=== PATIENT | male | born 1965 | race Caucasian/White ===

== ENCOUNTER 2021-07-13 13:35 | Inpatient (IN) | payer BC ==
[~2021-07-13] VITALS: Ht 170.2 cm; Wt 93.0 kg
[2021-07-13 18:00] VITALS: BP 152/97
[2021-07-13] MEDS ORDERED: ACETAMINOPHEN 325 MG TABLET PO PRN ×2 (18:30→18:45)
[2021-07-13] MEDS ORDERED: MELATONIN 5 MG TABLET PO PRN (18:30)
[2021-07-13] MEDS ORDERED: MELATONIN 3 MG TABLET PO PRN (18:45)
[2021-07-13] MEDS ORDERED: CloNIDine HCL 0.1 MG TABLET PO PRN (18:45)
[2021-07-13] MEDS ORDERED: MAGNESIUM HYDROXIDE SUSPENSION 30 ML UDCUP PO PRN (18:45)
[2021-07-13 19:15] VITALS: BP 134/87
[2021-07-13] MEDS: ETHYL ALCOHOL 62% ANTISEPTIC NASAL INHALANT 0.6 ML AMPUL NASAL SCH (20:55)
[2021-07-13] MEDS: METOPROLOL TARTRATE 50 MG TABLET PO SCH (20:55)
[2021-07-13] MEDS: DOCUSATE SODIUM 100 MG CAPSULE PO SCH (20:56)
[2021-07-13] MEDS: SENNA 187 MG TABLET PO SCH (20:56)
[2021-07-13 21:00] VITALS: BP 131/90
[2021-07-14] MEDS ORDERED: PNEUMOCOCCAL VACCINE POLYVALENT 0.5 ML VIAL [PPSV23] IM. ONE (00:15)
[2021-07-14 04:23] VITALS: BP 131/88
[2021-07-14 07:13] LABS: BASOPHILS % (AUTO) 0.4 % (0.0-2.0); EOSINOPHILS % (AUTO) 1.8 % (1.0-6.0); HEMATOCRIT 43.1 % (41-53); HEMOGLOBIN 14.9 g/dL (13.5-17.5); LYMPHOCYTES # (AUTO) 1.8 K/uL (1.0-4.8); LYMPHOCYTES % (AUTO) 20.1 % (22.0-44.0); MEAN CORPUSCULAR HEMOGLOBIN 31.2 pg (26.0-34.0); MEAN CORPUSCULAR HGB CONC 34.5 G/dL (31.0-37.0); MEAN CORPUSCULAR VOLUME 90 fL (80-100); MONOCYTES # (AUTO) 1.1 K/uL (0.1-1.0); MONOCYTES % (AUTO) 12.2 % (2.0-9.0); NEUTROPHILS # (AUTO) 5.9 K/uL (1.8-7.7); NEUTROPHILS % (AUTO) 65.5 % (40.0-70.0); PLATELET COUNT (AUTO) 170 K/uL (150-450); RED BLOOD CELL COUNT(AUTO) 4.77 MIL/uL (4.50-5.90); RED CELL DISTRIBUTION WIDTH 13.5 % (11.5-14.5)
[2021-07-14 07:26] LABS: ALANINE AMINOTRANSFERASE 81 U/L (12-78); ALBUMIN 3.8 g/dL (3.4-5.0); ALKALINE PHOSPHATASE 58 U/L (46-116); ANION GAP 8 mmol/L (8-16); ASPARTATE AMINOTRANSFERASE 26 U/L (15-37); BILIRUBIN,TOTAL 0.5 mg/dL (0.1-1.0); CALCIUM, TOTAL 9.3 mg/dL (8.8-10.5); CARBON DIOXIDE 29 mmol/L (22-29); CHLORIDE 102 mmol/L (98-107); CREATININE 1.06 mg/dL (0.60-1.30); GLOMERULAR FILTR. RATE CALC > 60 mL/min (>60); GLUCOSE,RANDOM 117 mg/dL (70-110); POTASSIUM 3.7 mmol/L (3.5-5.1); SODIUM SERUM 139 mmol/L (136-145); TOTAL PROTEIN, SERUM 7.8 g/dL (6.4-8.2); UREA NITROGEN, BLOOD 34 mg/dL (7-18)
[2021-07-14] MEDS: HYDROCHLOROTHIAZIDE 25 MG TABLET PO SCH (08:10)
[2021-07-14] MEDS: ETHYL ALCOHOL 62% ANTISEPTIC NASAL INHALANT 0.6 ML AMPUL NASAL SCH ×2 (08:10→20:38)
[2021-07-14] MEDS: LISINOPRIL 20 MG TABLET PO SCH (08:10)
[2021-07-14] MEDS: METOPROLOL TARTRATE 50 MG TABLET PO SCH ×2 (08:10→20:37)
[2021-07-14 08:30] VITALS: BP 133/94
[2021-07-14] MEDS: DOCUSATE SODIUM 100 MG CAPSULE PO SCH ×2 (08:38→20:38)
[2021-07-14] MEDS: ENOXAPARIN SODIUM 30 MG/0.3 ML PF SYRINGE SQ SCH ×2 (10:41→20:37)
[2021-07-14 15:10] VITALS: BP 124/85
[2021-07-14] MEDS: SENNA 187 MG TABLET PO SCH (20:38)
[2021-07-14 20:40] VITALS: BP 128/85
[2021-07-15 02:53] VITALS: BP 122/90
[2021-07-15 07:45] VITALS: BP 139/99
[2021-07-15] MEDS: METOPROLOL TARTRATE 50 MG TABLET PO SCH ×2 (08:56→21:26)
[2021-07-15] MEDS: LISINOPRIL 20 MG TABLET PO SCH (08:56)
[2021-07-15] MEDS: ETHYL ALCOHOL 62% ANTISEPTIC NASAL INHALANT 0.6 ML AMPUL NASAL SCH ×2 (08:56→21:26)
[2021-07-15] MEDS: ATORVASTATIN CALCIUM 20 MG TABLET PO SCH (08:56)
[2021-07-15] MEDS: HYDROCHLOROTHIAZIDE 25 MG TABLET PO SCH (08:58)
[2021-07-15] MEDS: DOCUSATE SODIUM 100 MG CAPSULE PO SCH ×2 (08:58→21:26)
[2021-07-15] MEDS: ENOXAPARIN SODIUM 30 MG/0.3 ML PF SYRINGE SQ SCH ×2 (08:59→21:25)
[2021-07-15 18:00] VITALS: BP 142/92
[2021-07-15 21:24] VITALS: BP 135/90
[2021-07-15] MEDS: SENNA 187 MG TABLET PO SCH (21:26)
[2021-07-16 01:45] VITALS: BP 121/85
[2021-07-16] MEDS ORDERED: METO25XL PO (07:36)
[2021-07-16] MEDS ORDERED: LORA10TA7 PO (07:36)
[2021-07-16] MEDS ORDERED: ASPI-1444 PO (07:36)
[2021-07-16 08:30] VITALS: BP 116/86
[2021-07-16] MEDS: ETHYL ALCOHOL 62% ANTISEPTIC NASAL INHALANT 0.6 ML AMPUL NASAL SCH ×2 (09:10→20:32)
[2021-07-16] MEDS: DOCUSATE SODIUM 100 MG CAPSULE PO SCH ×2 (09:11→20:33)
[2021-07-16] MEDS: LISINOPRIL 20 MG TABLET PO SCH (09:11)
[2021-07-16] MEDS: HYDROCHLOROTHIAZIDE 25 MG TABLET PO SCH (09:11)
[2021-07-16] MEDS: METOPROLOL TARTRATE 50 MG TABLET PO SCH ×2 (09:11→20:32)
[2021-07-16] MEDS: ATORVASTATIN CALCIUM 20 MG TABLET PO SCH (09:11)
[2021-07-16] MEDS: ENOXAPARIN SODIUM 30 MG/0.3 ML PF SYRINGE SQ SCH ×2 (09:25→20:32)
[2021-07-16 15:00] VITALS: BP 127/80
[2021-07-16 20:28] VITALS: BP 108/85
[2021-07-16] MEDS: SENNA 187 MG TABLET PO SCH (20:33)
[2021-07-17 01:30] VITALS: BP 133/92
[2021-07-17] MEDS: METOPROLOL TARTRATE 50 MG TABLET PO SCH ×2 (07:35→20:34)
[2021-07-17] MEDS: ATORVASTATIN CALCIUM 20 MG TABLET PO SCH (07:35)
[2021-07-17] MEDS: DOCUSATE SODIUM 100 MG CAPSULE PO SCH ×2 (07:35→20:34)
[2021-07-17] MEDS: HYDROCHLOROTHIAZIDE 25 MG TABLET PO SCH (07:35)
[2021-07-17] MEDS: ETHYL ALCOHOL 62% ANTISEPTIC NASAL INHALANT 0.6 ML AMPUL NASAL SCH ×2 (07:35→20:34)
[2021-07-17] MEDS: LISINOPRIL 20 MG TABLET PO SCH (07:36)
[2021-07-17 08:30] VITALS: BP 127/90
[2021-07-17] MEDS: ENOXAPARIN SODIUM 30 MG/0.3 ML PF SYRINGE SQ SCH ×2 (09:12→20:34)
[2021-07-17 15:40] VITALS: BP 124/77
[2021-07-17 20:32] VITALS: BP 135/73
[2021-07-17] MEDS: SENNA 187 MG TABLET PO SCH (20:37)
[2021-07-18 01:00] VITALS: BP 117/82
[2021-07-18] MEDS: DOCUSATE SODIUM 100 MG CAPSULE PO SCH ×2 (08:00→21:12)
[2021-07-18] MEDS: ATORVASTATIN CALCIUM 20 MG TABLET PO SCH (08:00)
[2021-07-18] MEDS: ETHYL ALCOHOL 62% ANTISEPTIC NASAL INHALANT 0.6 ML AMPUL NASAL SCH ×2 (08:00→21:12)
[2021-07-18] MEDS: METOPROLOL TARTRATE 50 MG TABLET PO SCH ×2 (08:01→21:13)
[2021-07-18] MEDS: LISINOPRIL 20 MG TABLET PO SCH (08:01)
[2021-07-18] MEDS: ENOXAPARIN SODIUM 30 MG/0.3 ML PF SYRINGE SQ SCH ×2 (08:01→21:13)
[2021-07-18] MEDS: HYDROCHLOROTHIAZIDE 25 MG TABLET PO SCH (08:02)
[2021-07-18 08:30] VITALS: BP 134/97
[2021-07-18 15:30] VITALS: BP 127/84
[2021-07-18 21:00] VITALS: BP 131/82
[2021-07-18] MEDS: SENNA 187 MG TABLET PO SCH (21:12)
[2021-07-19 00:45] VITALS: BP 134/85
[2021-07-19] MEDS: DOCUSATE SODIUM 100 MG CAPSULE PO SCH ×2 (08:01→20:55)
[2021-07-19] MEDS: LISINOPRIL 20 MG TABLET PO SCH (08:02)
[2021-07-19] MEDS: METOPROLOL TARTRATE 50 MG TABLET PO SCH ×2 (08:02→20:55)
[2021-07-19] MEDS: ATORVASTATIN CALCIUM 20 MG TABLET PO SCH (08:02)
[2021-07-19] MEDS: HYDROCHLOROTHIAZIDE 25 MG TABLET PO SCH (08:03)
[2021-07-19] MEDS: ENOXAPARIN SODIUM 30 MG/0.3 ML PF SYRINGE SQ SCH ×2 (08:03→20:54)
[2021-07-19] MEDS: ETHYL ALCOHOL 62% ANTISEPTIC NASAL INHALANT 0.6 ML AMPUL NASAL SCH ×2 (08:03→20:54)
[2021-07-19 08:10] VITALS: BP 119/94
[2021-07-19 11:12] LABS: COVID AG,FIA SOURCE NASAL SWAB
[2021-07-19] MEDS: LORATADINE 10 MG TABLET PO SCH (12:30)
[2021-07-19 12:34] VITALS: BP 128/81
[2021-07-19 15:39] VITALS: BP 118/76
[2021-07-19 20:00] VITALS: BP 117/80
[2021-07-19] MEDS: SENNA 187 MG TABLET PO SCH (20:54)
[2021-07-19] MEDS: FLUTICASONE PROPIONATE 50 MCG/SPRAY 16 GM NASAL SPRAY NASAL PRN (21:04)
[2021-07-20] VITALS: BP 118/73
[2021-07-20 08:04] VITALS: BP 126/76
[2021-07-20] MEDS: HYDROCHLOROTHIAZIDE 25 MG TABLET PO SCH (08:09)
[2021-07-20] MEDS: ENOXAPARIN SODIUM 30 MG/0.3 ML PF SYRINGE SQ SCH ×2 (08:09→20:50)
[2021-07-20] MEDS: ETHYL ALCOHOL 62% ANTISEPTIC NASAL INHALANT 0.6 ML AMPUL NASAL SCH ×2 (08:09→20:49)
[2021-07-20] MEDS: LISINOPRIL 20 MG TABLET PO SCH (08:10)
[2021-07-20] MEDS: LORATADINE 10 MG TABLET PO SCH (08:10)
[2021-07-20] MEDS: METOPROLOL TARTRATE 50 MG TABLET PO SCH ×2 (08:10→20:50)
[2021-07-20] MEDS: ATORVASTATIN CALCIUM 20 MG TABLET PO SCH (08:10)
[2021-07-20] MEDS: DOCUSATE SODIUM 100 MG CAPSULE PO SCH ×2 (08:10→20:49)
[2021-07-20 16:02] VITALS: BP 112/72
[2021-07-20 20:30] VITALS: BP 113/70
[2021-07-20] MEDS: FLUTICASONE PROPIONATE 50 MCG/SPRAY 16 GM NASAL SPRAY NASAL PRN (20:50)
[2021-07-20] MEDS: SENNA 187 MG TABLET PO SCH (20:50)
[2021-07-21 05:25] VITALS: BP 120/87
[2021-07-21] MEDS: METOPROLOL TARTRATE 50 MG TABLET PO SCH ×2 (08:28→20:40)
[2021-07-21] MEDS: ENOXAPARIN SODIUM 30 MG/0.3 ML PF SYRINGE SQ SCH ×2 (08:28→20:40)
[2021-07-21] MEDS: HYDROCHLOROTHIAZIDE 25 MG TABLET PO SCH (08:29)
[2021-07-21] MEDS: LORATADINE 10 MG TABLET PO SCH (08:30)
[2021-07-21] MEDS: DOCUSATE SODIUM 100 MG CAPSULE PO SCH ×2 (08:30→20:40)
[2021-07-21] MEDS: ATORVASTATIN CALCIUM 20 MG TABLET PO SCH (08:30)
[2021-07-21] MEDS: LISINOPRIL 20 MG TABLET PO SCH (08:30)
[2021-07-21] MEDS: ETHYL ALCOHOL 62% ANTISEPTIC NASAL INHALANT 0.6 ML AMPUL NASAL SCH ×2 (08:36→20:40)
[2021-07-21 09:12] VITALS: BP 118/89
[2021-07-21 16:02] VITALS: BP 123/73
[2021-07-21] MEDS: SENNA 187 MG TABLET PO SCH (20:40)
[2021-07-21] MEDS: FLUTICASONE PROPIONATE 50 MCG/SPRAY 16 GM NASAL SPRAY NASAL PRN (20:41)
[2021-07-21 23:01] VITALS: BP 117/70
[2021-07-22 02:00] VITALS: BP 124/76
[2021-07-22] MEDS: DOCUSATE SODIUM 100 MG CAPSULE PO SCH ×2 (08:41→20:46)
[2021-07-22] MEDS: LORATADINE 10 MG TABLET PO SCH (08:41)
[2021-07-22] MEDS: METOPROLOL TARTRATE 50 MG TABLET PO SCH ×2 (08:42→20:46)
[2021-07-22] MEDS: ATORVASTATIN CALCIUM 20 MG TABLET PO SCH (08:43)
[2021-07-22] MEDS: ENOXAPARIN SODIUM 30 MG/0.3 ML PF SYRINGE SQ SCH ×2 (08:44→20:46)
[2021-07-22] MEDS: LISINOPRIL 20 MG TABLET PO SCH (08:48)
[2021-07-22] MEDS: ETHYL ALCOHOL 62% ANTISEPTIC NASAL INHALANT 0.6 ML AMPUL NASAL SCH ×2 (08:48→20:46)
[2021-07-22] MEDS: HYDROCHLOROTHIAZIDE 25 MG TABLET PO SCH ×2 (09:00→09:57)
[2021-07-22 09:28] VITALS: BP 117/53
[2021-07-22 16:15] VITALS: BP 128/92
[2021-07-22 20:09] VITALS: BP 135/86
[2021-07-22 20:46] VITALS: BP 144/94
[2021-07-22] MEDS: SENNA 187 MG TABLET PO SCH (20:46)
[2021-07-22] MEDS ORDERED: HydrALAZINE HCL 25 MG TABLET PO PRN (21:15)
[2021-07-22] MEDS ORDERED: HydrALAZINE HCL 25 MG TABLET PO ONE (21:15)
[2021-07-22 21:39] VITALS: BP 148/98
[2021-07-22] MEDS ORDERED: HYDROCHLOROTHIAZIDE 25 MG TABLET PO ONE (22:00)
[2021-07-23 00:20] VITALS: BP 124/84
[2021-07-23 05:30] VITALS: BP 121/88
[2021-07-23 09:00] VITALS: BP 122/81
[2021-07-23] MEDS: LISINOPRIL 20 MG TABLET PO SCH (09:06)
[2021-07-23] MEDS: DOCUSATE SODIUM 100 MG CAPSULE PO SCH ×2 (09:07→20:21)
[2021-07-23] MEDS: ATORVASTATIN CALCIUM 20 MG TABLET PO SCH (09:07)
[2021-07-23] MEDS: METOPROLOL TARTRATE 50 MG TABLET PO SCH ×2 (09:07→20:21)
[2021-07-23] MEDS: LORATADINE 10 MG TABLET PO SCH (09:08)
[2021-07-23] MEDS: ENOXAPARIN SODIUM 30 MG/0.3 ML PF SYRINGE SQ SCH ×2 (09:08→20:21)
[2021-07-23] MEDS: ETHYL ALCOHOL 62% ANTISEPTIC NASAL INHALANT 0.6 ML AMPUL NASAL SCH ×2 (09:08→20:21)
[2021-07-23 10:10] VITALS: BP 131/85
[2021-07-23] MEDS: AmLODIPine BESYLATE 5 MG TABLET PO SCH (10:10)
[2021-07-23] MEDS: HYDROCHLOROTHIAZIDE 25 MG TABLET PO SCH (10:10)
[2021-07-23 15:42] VITALS: BP 127/79
[2021-07-23 20:20] VITALS: BP 129/83
[2021-07-23] MEDS: SENNA 187 MG TABLET PO SCH (20:21)
[2021-07-24 02:09] VITALS: BP 124/83
[2021-07-24] MEDS: DOCUSATE SODIUM 100 MG CAPSULE PO SCH ×2 (08:28→20:36)
[2021-07-24] MEDS: ETHYL ALCOHOL 62% ANTISEPTIC NASAL INHALANT 0.6 ML AMPUL NASAL SCH ×2 (08:28→20:37)
[2021-07-24] MEDS: ENOXAPARIN SODIUM 30 MG/0.3 ML PF SYRINGE SQ SCH ×2 (08:28→20:36)
[2021-07-24] MEDS: LORATADINE 10 MG TABLET PO SCH (08:28)
[2021-07-24] MEDS: HYDROCHLOROTHIAZIDE 25 MG TABLET PO SCH (08:29)
[2021-07-24] MEDS: METOPROLOL TARTRATE 50 MG TABLET PO SCH ×2 (08:29→20:37)
[2021-07-24] MEDS: ATORVASTATIN CALCIUM 20 MG TABLET PO SCH (08:30)
[2021-07-24] MEDS: AmLODIPine BESYLATE 5 MG TABLET PO SCH (08:30)
[2021-07-24] MEDS: LISINOPRIL 20 MG TABLET PO SCH (08:30)
[2021-07-24 10:28] VITALS: BP 116/83
[2021-07-24 15:10] VITALS: BP 129/69
[2021-07-24 18:36] VITALS: BP 123/80
[2021-07-24 20:35] VITALS: BP 122/81
[2021-07-24] MEDS: SENNA 187 MG TABLET PO SCH (20:36)
[2021-07-25 03:20] VITALS: BP 116/78
[2021-07-25] MEDS: ETHYL ALCOHOL 62% ANTISEPTIC NASAL INHALANT 0.6 ML AMPUL NASAL SCH ×2 (07:57→21:46)
[2021-07-25] MEDS: METOPROLOL TARTRATE 50 MG TABLET PO SCH ×2 (07:57→21:47)
[2021-07-25] MEDS: ENOXAPARIN SODIUM 30 MG/0.3 ML PF SYRINGE SQ SCH ×2 (07:57→21:47)
[2021-07-25] MEDS: LORATADINE 10 MG TABLET PO SCH (07:58)
[2021-07-25] MEDS: AmLODIPine BESYLATE 5 MG TABLET PO SCH (07:58)
[2021-07-25] MEDS: DOCUSATE SODIUM 100 MG CAPSULE PO SCH ×2 (07:58→21:52)
[2021-07-25] MEDS: HYDROCHLOROTHIAZIDE 25 MG TABLET PO SCH (07:58)
[2021-07-25] MEDS: LISINOPRIL 20 MG TABLET PO SCH (07:59)
[2021-07-25] MEDS: ATORVASTATIN CALCIUM 20 MG TABLET PO SCH (07:59)
[2021-07-25 09:42] VITALS: BP 118/83
[2021-07-25 15:37] VITALS: BP 132/72
[2021-07-25 21:27] VITALS: BP 139/87
[2021-07-25] MEDS: SENNA 187 MG TABLET PO SCH (21:52)
[2021-07-26] VITALS: BP 146/88
[2021-07-26] MEDS: FLUTICASONE PROPIONATE 50 MCG/SPRAY 16 GM NASAL SPRAY NASAL PRN ×2 (05:56→20:31)
[2021-07-26] MEDS: METOPROLOL TARTRATE 50 MG TABLET PO SCH ×2 (09:05→20:31)
[2021-07-26] MEDS: LORATADINE 10 MG TABLET PO SCH (09:05)
[2021-07-26] MEDS: DOCUSATE SODIUM 100 MG CAPSULE PO SCH ×2 (09:05→20:31)
[2021-07-26] MEDS: LISINOPRIL 20 MG TABLET PO SCH (09:06)
[2021-07-26] MEDS: HYDROCHLOROTHIAZIDE 25 MG TABLET PO SCH (09:06)
[2021-07-26] MEDS: AmLODIPine BESYLATE 5 MG TABLET PO SCH (09:06)
[2021-07-26] MEDS: ATORVASTATIN CALCIUM 20 MG TABLET PO SCH (09:06)
[2021-07-26] MEDS: ETHYL ALCOHOL 62% ANTISEPTIC NASAL INHALANT 0.6 ML AMPUL NASAL SCH ×2 (09:07→20:31)
[2021-07-26] MEDS: ENOXAPARIN SODIUM 30 MG/0.3 ML PF SYRINGE SQ SCH ×2 (09:07→20:31)
[2021-07-26 09:40] VITALS: BP 134/84
[2021-07-26 16:10] VITALS: BP 139/73
[2021-07-26] MEDS: SENNA 187 MG TABLET PO SCH (20:31)
[2021-07-27] VITALS: BP 123/82
[2021-07-27 09:00] VITALS: BP 132/94
[2021-07-27] MEDS: LORATADINE 10 MG TABLET PO SCH (09:35)
[2021-07-27] MEDS: ENOXAPARIN SODIUM 30 MG/0.3 ML PF SYRINGE SQ SCH (09:35)
[2021-07-27] MEDS: METOPROLOL TARTRATE 50 MG TABLET PO SCH ×2 (09:35→19:55)
[2021-07-27] MEDS: ATORVASTATIN CALCIUM 20 MG TABLET PO SCH (09:36)
[2021-07-27] MEDS: AmLODIPine BESYLATE 5 MG TABLET PO SCH (09:36)
[2021-07-27] MEDS: LISINOPRIL 20 MG TABLET PO SCH (09:36)
[2021-07-27] MEDS: DOCUSATE SODIUM 100 MG CAPSULE PO SCH ×2 (09:36→19:55)
[2021-07-27] MEDS: HYDROCHLOROTHIAZIDE 25 MG TABLET PO SCH (09:36)
[2021-07-27] MEDS: ETHYL ALCOHOL 62% ANTISEPTIC NASAL INHALANT 0.6 ML AMPUL NASAL SCH ×2 (09:37→19:56)
[2021-07-27 17:43] VITALS: BP 137/90
[2021-07-27] MEDS: SENNA 187 MG TABLET PO SCH (19:55)
[2021-07-27] MEDS: APIXABAN 5 MG TABLET PO SCH (19:56)
[2021-07-27 20:00] VITALS: BP 133/84
[2021-07-27] MEDS: FLUTICASONE PROPIONATE 50 MCG/SPRAY 16 GM NASAL SPRAY NASAL PRN (21:00)
[2021-07-28] VITALS: BP 118/94
[2021-07-28 08:16] VITALS: BP 134/87
[2021-07-28] MEDS: DOCUSATE SODIUM 100 MG CAPSULE PO SCH ×2 (09:29→20:31)
[2021-07-28] MEDS: HYDROCHLOROTHIAZIDE 25 MG TABLET PO SCH (09:29)
[2021-07-28] MEDS: ETHYL ALCOHOL 62% ANTISEPTIC NASAL INHALANT 0.6 ML AMPUL NASAL SCH ×2 (09:29→20:30)
[2021-07-28] MEDS: ATORVASTATIN CALCIUM 20 MG TABLET PO SCH (09:30)
[2021-07-28] MEDS: LISINOPRIL 20 MG TABLET PO SCH (09:30)
[2021-07-28] MEDS: LORATADINE 10 MG TABLET PO SCH (09:30)
[2021-07-28] MEDS: METOPROLOL TARTRATE 50 MG TABLET PO SCH ×2 (09:31→20:31)
[2021-07-28] MEDS: APIXABAN 5 MG TABLET PO SCH ×2 (09:32→20:31)
[2021-07-28] MEDS: AmLODIPine BESYLATE 5 MG TABLET PO SCH (09:32)
[2021-07-28 13:13] LABS: COVID AG,FIA SOURCE NASAL SWAB
[2021-07-28 15:56] VITALS: BP 133/92
[2021-07-28 20:30] VITALS: BP 140/91
[2021-07-28] MEDS: FLUTICASONE PROPIONATE 50 MCG/SPRAY 16 GM NASAL SPRAY NASAL PRN (20:30)
[2021-07-28] MEDS: SENNA 187 MG TABLET PO SCH (20:31)
[2021-07-28] MEDS ORDERED: FLUT16H NASAL (20:49)
[2021-07-28] MEDS ORDERED: ATOR20TA86 PO (20:49)
[2021-07-28] MEDS ORDERED: SENN8.6T20 PO (20:49)
[2021-07-28] MEDS ORDERED: LISI-894 PO (20:49)
[2021-07-28] MEDS ORDERED: AMLO-257 PO (20:49)
[2021-07-28] MEDS ORDERED: METO50 PO (20:49)
[2021-07-28] MEDS ORDERED: DOCU-270 PO (20:49)
[2021-07-28] MEDS ORDERED: APIX5TAB PO (20:49)
[2021-07-28] MEDS ORDERED: HYDR25TA2 PO (20:49)
[2021-07-29 00:50] VITALS: BP 125/81
[2021-07-29] MEDS: LORATADINE 10 MG TABLET PO SCH (08:50)
[2021-07-29] MEDS: DOCUSATE SODIUM 100 MG CAPSULE PO SCH ×2 (08:50→20:13)
[2021-07-29] MEDS: METOPROLOL TARTRATE 50 MG TABLET PO SCH ×2 (08:51→20:13)
[2021-07-29] MEDS: HYDROCHLOROTHIAZIDE 25 MG TABLET PO SCH (08:52)
[2021-07-29] MEDS: AmLODIPine BESYLATE 5 MG TABLET PO SCH (08:52)
[2021-07-29] MEDS: LISINOPRIL 20 MG TABLET PO SCH (08:52)
[2021-07-29] MEDS: APIXABAN 5 MG TABLET PO SCH ×2 (08:53→20:14)
[2021-07-29] MEDS: ATORVASTATIN CALCIUM 20 MG TABLET PO SCH (08:53)
[2021-07-29] MEDS: ETHYL ALCOHOL 62% ANTISEPTIC NASAL INHALANT 0.6 ML AMPUL NASAL SCH ×2 (08:53→20:13)
[2021-07-29 09:55] VITALS: BP 131/80
[2021-07-29 10:47] LABS: BASOPHILS % (AUTO) 0.2 % (0.0-2.0); EOSINOPHILS % (AUTO) 1.9 % (1.0-6.0); HEMATOCRIT 38.9 % (41-53); HEMOGLOBIN 13.3 g/dL (13.5-17.5); LYMPHOCYTES # (AUTO) 2.1 K/uL (1.0-4.8); LYMPHOCYTES % (AUTO) 29.3 % (22.0-44.0); MEAN CORPUSCULAR HEMOGLOBIN 30.7 pg (26.0-34.0); MEAN CORPUSCULAR HGB CONC 34.1 G/dL (31.0-37.0); MEAN CORPUSCULAR VOLUME 90 fL (80-100); MONOCYTES # (AUTO) 0.6 K/uL (0.1-1.0); MONOCYTES % (AUTO) 8.5 % (2.0-9.0); NEUTROPHILS # (AUTO) 4.3 K/uL (1.8-7.7); NEUTROPHILS % (AUTO) 60.1 % (40.0-70.0); PLATELET COUNT (AUTO) 166 K/uL (150-450); RED BLOOD CELL COUNT(AUTO) 4.32 MIL/uL (4.50-5.90); RED CELL DISTRIBUTION WIDTH 13.3 % (11.5-14.5)
[2021-07-29 11:00] LABS: ALANINE AMINOTRANSFERASE 60 U/L (12-78); ALBUMIN 3.8 g/dL (3.4-5.0); ALKALINE PHOSPHATASE 63 U/L (46-116); ANION GAP 9 mmol/L (8-16); ASPARTATE AMINOTRANSFERASE 23 U/L (15-37); BILIRUBIN,TOTAL 0.2 mg/dL (0.1-1.0); CALCIUM, TOTAL 9.1 mg/dL (8.8-10.5); CARBON DIOXIDE 29 mmol/L (22-29); CHLORIDE 104 mmol/L (98-107); CREATININE 1.02 mg/dL (0.60-1.30); GLOMERULAR FILTR. RATE CALC > 60 mL/min (>60); GLUCOSE,RANDOM 148 mg/dL (70-110); POTASSIUM 3.9 mmol/L (3.5-5.1); SODIUM SERUM 142 mmol/L (136-145); TOTAL PROTEIN, SERUM 7.7 g/dL (6.4-8.2); UREA NITROGEN, BLOOD 23 mg/dL (7-18)
[2021-07-29 16:29] VITALS: BP 137/76
[2021-07-29 20:00] VITALS: BP 140/81
[2021-07-29] MEDS: SENNA 187 MG TABLET PO SCH (20:13)
[2021-07-29] MEDS: FLUTICASONE PROPIONATE 50 MCG/SPRAY 16 GM NASAL SPRAY NASAL PRN (20:15)
[2021-07-30 06:00] VITALS: BP 139/93
[2021-07-30] MEDS: ETHYL ALCOHOL 62% ANTISEPTIC NASAL INHALANT 0.6 ML AMPUL NASAL SCH ×2 (07:34→20:09)
[2021-07-30] MEDS: METOPROLOL TARTRATE 50 MG TABLET PO SCH ×2 (07:36→20:10)
[2021-07-30] MEDS: LISINOPRIL 20 MG TABLET PO SCH (07:36)
[2021-07-30] MEDS: APIXABAN 5 MG TABLET PO SCH ×2 (07:36→20:09)
[2021-07-30] MEDS: HYDROCHLOROTHIAZIDE 25 MG TABLET PO SCH (07:36)
[2021-07-30] MEDS: AmLODIPine BESYLATE 5 MG TABLET PO SCH (07:36)
[2021-07-30] MEDS: DOCUSATE SODIUM 100 MG CAPSULE PO SCH ×2 (07:36→20:09)
[2021-07-30] MEDS: ATORVASTATIN CALCIUM 20 MG TABLET PO SCH (07:36)
[2021-07-30] MEDS: LORATADINE 10 MG TABLET PO SCH (07:36)
[2021-07-30 08:00] VITALS: BP 137/90
[2021-07-30 16:30] VITALS: BP 129/76
[2021-07-30 20:00] VITALS: BP 136/88
[2021-07-30] MEDS: SENNA 187 MG TABLET PO SCH (20:10)
[2021-07-30] MEDS: FLUTICASONE PROPIONATE 50 MCG/SPRAY 16 GM NASAL SPRAY NASAL PRN (20:10)
[2021-07-31 00:45] VITALS: BP 133/90
[2021-07-31 08:15] VITALS: BP 138/92
[2021-07-31] MEDS: ETHYL ALCOHOL 62% ANTISEPTIC NASAL INHALANT 0.6 ML AMPUL NASAL SCH ×2 (08:39→20:35)
[2021-07-31] MEDS: APIXABAN 5 MG TABLET PO SCH ×2 (08:40→20:36)
[2021-07-31] MEDS: DOCUSATE SODIUM 100 MG CAPSULE PO SCH ×2 (08:40→20:35)
[2021-07-31] MEDS: LORATADINE 10 MG TABLET PO SCH (08:40)
[2021-07-31] MEDS: ATORVASTATIN CALCIUM 20 MG TABLET PO SCH (08:41)
[2021-07-31] MEDS: METOPROLOL TARTRATE 50 MG TABLET PO SCH ×2 (08:41→20:35)
[2021-07-31] MEDS: HYDROCHLOROTHIAZIDE 25 MG TABLET PO SCH (08:42)
[2021-07-31] MEDS: AmLODIPine BESYLATE 5 MG TABLET PO SCH (08:42)
[2021-07-31] MEDS: LISINOPRIL 20 MG TABLET PO SCH (08:43)
[2021-07-31] MEDS: FLUTICASONE PROPIONATE 50 MCG/SPRAY 16 GM NASAL SPRAY NASAL PRN ×2 (08:44→20:35)
[2021-07-31 16:00] VITALS: BP 140/94
[2021-07-31] MEDS: SENNA 187 MG TABLET PO SCH (20:36)
[2021-07-31 20:40] VITALS: BP 140/88
[2021-08-01] VITALS: BP 135/88
[2021-08-01] MEDS: ETHYL ALCOHOL 62% ANTISEPTIC NASAL INHALANT 0.6 ML AMPUL NASAL SCH ×2 (08:05→20:55)
[2021-08-01] MEDS: METOPROLOL TARTRATE 50 MG TABLET PO SCH (08:06)
[2021-08-01] MEDS: DOCUSATE SODIUM 100 MG CAPSULE PO SCH ×2 (08:06→20:54)
[2021-08-01] MEDS: LORATADINE 10 MG TABLET PO SCH (08:06)
[2021-08-01] MEDS: AmLODIPine BESYLATE 5 MG TABLET PO SCH (08:06)
[2021-08-01] MEDS: HYDROCHLOROTHIAZIDE 25 MG TABLET PO SCH (08:06)
[2021-08-01] MEDS: ATORVASTATIN CALCIUM 20 MG TABLET PO SCH (08:09)
[2021-08-01] MEDS: LISINOPRIL 20 MG TABLET PO SCH (08:09)
[2021-08-01] MEDS: APIXABAN 5 MG TABLET PO SCH ×2 (08:09→20:55)
[2021-08-01 09:14] VITALS: BP 144/86
[2021-08-01 17:25] VITALS: BP 121/91
[2021-08-01] MEDS: SENNA 187 MG TABLET PO SCH (20:54)
[2021-08-01] MEDS: FLUTICASONE PROPIONATE 50 MCG/SPRAY 16 GM NASAL SPRAY NASAL PRN (20:55)
[2021-08-01] MEDS ORDERED: METOPROLOL TARTRATE 50 MG TABLET PO ONE (21:15)
[2021-08-02 00:53] VITALS: BP 130/81
[2021-08-02] MEDS: HYDROCHLOROTHIAZIDE 25 MG TABLET PO SCH (08:34)
[2021-08-02] MEDS: DOCUSATE SODIUM 100 MG CAPSULE PO SCH ×2 (08:34→20:23)
[2021-08-02] MEDS: METOPROLOL SUCCINATE 50 MG ER TABLET PO SCH (08:35)
[2021-08-02] MEDS: LORATADINE 10 MG TABLET PO SCH (08:36)
[2021-08-02] MEDS: APIXABAN 5 MG TABLET PO SCH ×2 (08:36→20:23)
[2021-08-02] MEDS: ATORVASTATIN CALCIUM 20 MG TABLET PO SCH (08:37)
[2021-08-02] MEDS: AmLODIPine BESYLATE 5 MG TABLET PO SCH (08:37)
[2021-08-02] MEDS: FLUTICASONE PROPIONATE 50 MCG/SPRAY 16 GM NASAL SPRAY NASAL PRN ×2 (08:38→20:23)
[2021-08-02] MEDS: ETHYL ALCOHOL 62% ANTISEPTIC NASAL INHALANT 0.6 ML AMPUL NASAL SCH ×2 (08:38→20:23)
[2021-08-02] MEDS: LISINOPRIL 20 MG TABLET PO SCH (08:38)
[2021-08-02 09:19] VITALS: BP 121/77
[2021-08-02 16:14] VITALS: BP 136/86
[2021-08-02] MEDS: SENNA 187 MG TABLET PO SCH (20:23)
[2021-08-03 01:00] VITALS: BP 118/90
[2021-08-03] MEDS ORDERED: METO-558 PO (02:54)
[2021-08-03] MEDS: METOPROLOL SUCCINATE 50 MG ER TABLET PO SCH (08:03)
[2021-08-03] MEDS: ETHYL ALCOHOL 62% ANTISEPTIC NASAL INHALANT 0.6 ML AMPUL NASAL SCH ×2 (08:03→20:19)
[2021-08-03] MEDS: LORATADINE 10 MG TABLET PO SCH (08:04)
[2021-08-03] MEDS: HYDROCHLOROTHIAZIDE 25 MG TABLET PO SCH (08:04)
[2021-08-03] MEDS: DOCUSATE SODIUM 100 MG CAPSULE PO SCH ×2 (08:04→20:19)
[2021-08-03] MEDS: AmLODIPine BESYLATE 5 MG TABLET PO SCH (08:04)
[2021-08-03] MEDS: APIXABAN 5 MG TABLET PO SCH ×2 (08:06→20:19)
[2021-08-03] MEDS: ATORVASTATIN CALCIUM 20 MG TABLET PO SCH (08:06)
[2021-08-03] MEDS: LISINOPRIL 20 MG TABLET PO SCH (08:06)
[2021-08-03] MEDS: FLUTICASONE PROPIONATE 50 MCG/SPRAY 16 GM NASAL SPRAY NASAL PRN ×2 (08:08→20:20)
[2021-08-03 08:46] VITALS: BP 133/89
[2021-08-03 16:30] VITALS: BP 140/87
[2021-08-03] MEDS: SENNA 187 MG TABLET PO SCH (20:19)
[2021-08-04 02:00] VITALS: BP 130/87
[2021-08-04] MEDS: ETHYL ALCOHOL 62% ANTISEPTIC NASAL INHALANT 0.6 ML AMPUL NASAL SCH (09:18)
[2021-08-04] MEDS: METOPROLOL SUCCINATE 50 MG ER TABLET PO SCH (09:19)
[2021-08-04] MEDS: DOCUSATE SODIUM 100 MG CAPSULE PO SCH (09:20)
[2021-08-04] MEDS: LISINOPRIL 20 MG TABLET PO SCH (09:20)
[2021-08-04] MEDS: HYDROCHLOROTHIAZIDE 25 MG TABLET PO SCH (09:20)
[2021-08-04] MEDS: APIXABAN 5 MG TABLET PO SCH (09:21)
[2021-08-04] MEDS: AmLODIPine BESYLATE 5 MG TABLET PO SCH (09:21)
[2021-08-04] MEDS: ATORVASTATIN CALCIUM 20 MG TABLET PO SCH (09:21)
[2021-08-04] MEDS: LORATADINE 10 MG TABLET PO SCH (09:21)
[2021-08-04] MEDS: FLUTICASONE PROPIONATE 50 MCG/SPRAY 16 GM NASAL SPRAY NASAL PRN (09:22)
[2021-08-04 09:35] VITALS: BP 144/100
[2021-08-04] MEDS ORDERED: APIX5TAB4 PO (09:54)
[2021-08-04] MEDS ORDERED: METO200T PO (09:54)
[2021-08-04] MEDS ORDERED: AMLO5TAB4 PO (09:54)
[2021-08-04] MEDS ORDERED: LISI-663 PO (09:54)
[2021-08-04] MEDS ORDERED: TRIA10.8 NASAL (09:54)
[2021-08-04] MEDS ORDERED: HYDR12.54 PO (09:54)
[2021-08-04] MEDS ORDERED: ATOR20TA65 PO (09:54)
[2021-08-04 11:18] LABS: COVID AG,FIA SOURCE NASAL SWAB
== END 2021-08-04 12:35 | disposition home or self-care (01) | DRG 56 ==
LOC: 2WR 18:00
PROVIDERS: ADMIT Physical Medicine & Rehabilitation; ATTEND Physical Medicine & Rehabilitation
DX: I69.351 Hemiplegia and hemiparesis following cerebral infarction affecting right dominant side (principal); I63.9 Cerebral infarction, unspecified; I69.322 Dysarthria following cerebral infarction; I69.320 Aphasia following cerebral infarction; E66.9 Obesity, unspecified; Z20.822 Contact with and (suspected) exposure to COVID-19; I10 Essential (primary) hypertension; G47.33 Obstructive sleep apnea (adult) (pediatric); F43.20 Adjustment disorder, unspecified; E78.5 Hyperlipidemia, unspecified; K59.00 Constipation, unspecified; L29.9 Pruritus, unspecified; R13.10 Dysphagia, unspecified; Z86.718 Personal history of other venous thrombosis and embolism; Z68.32 Body mass index [BMI] 32.0-32.9, adult
CPT/HCPCS: 70450; 74230; 80053; 85025; 87081; 90732; 92507; 92523; 92526; 92611; 93970; 94660; 95816; 97110; 97112; 97116; 97163; 97166; 97530; 97535; 99366; J1650

== ENCOUNTER → 2021-10-14 | Outpatient (CLI) | payer OTHER ==
[~2021-10-14] MED LIST: AMLO-257 PO; AMLO5TAB4 PO; APIX5TAB PO; APIX5TAB4 PO; ATOR20TA65 PO; ATOR20TA86 PO; DOCU-270 PO; FLUT16H NASAL; HYDR12.54 PO; HYDR25TA2 PO; LISI-663 PO; LISI-894 PO; LORA10TA7 PO; METO-558 PO; METO200T PO; SENN8.6T20 PO; TRIA10.8 NASAL
[2021-10-14 13:16] LABS: CHOL/HDL RATIO 2.5 (4.2-7.3)
== END | disposition home or self-care (01) ==
LOC: LABPV 12:03
PROVIDERS: ATTEND Physical Medicine & Rehabilitation
DX: I10 Essential (primary) hypertension (principal); I61.9 Nontraumatic intracerebral hemorrhage, unspecified
CPT/HCPCS: 80061; 82550

== ENCOUNTER → 2022-06-27 | Outpatient (CLI) | payer BC ==
[~2022-06-27] MED LIST changes: -DOCU-270 PO; +DOCU-385 PO; -FLUT16H NASAL; +FLUT16SP NASAL
[2022-06-27 10:59] LABS: ALANINE AMINOTRANSFERASE 22 U/L (12-78); ALBUMIN 4.4 g/dL (3.4-5.0); ALKALINE PHOSPHATASE 61 U/L (46-116); ANION GAP 7 mmol/L (8-16); ASPARTATE AMINOTRANSFERASE 13 U/L (15-37); BILIRUBIN,TOTAL 0.7 mg/dL (0.1-1.0); CALCIUM, TOTAL 9.5 mg/dL (8.8-10.5); CARBON DIOXIDE 28 mmol/L (22-29); CHLORIDE 102 mmol/L (98-107); CHOL/HDL RATIO 2.3 (4.2-7.3); CHOLESTEROL 110 mg/dL (131-200); CREATININE 1.08 mg/dL (0.60-1.30); GLUCOSE,RANDOM 123 mg/dL (70-110); HDL CHOLESTEROL 48 mg/dL (40-60); LDL CHOL (CALC.) 49 mg/dL (0-130); POTASSIUM 3.6 mmol/L (3.5-5.1); SODIUM SERUM 137 mmol/L (136-145); TRIGLYCERIDES 65 mg/dL (15-150); UREA NITROGEN, BLOOD 14 mg/dL (7-18)
[2022-06-27 11:03] LABS: GLOMERULAR FILTR. RATE CALC > 60 mL/min (>60)
[2022-06-27 12:08] LABS: BASOPHILS % (AUTO) 0.7 % (0.0-2.0); EOSINOPHILS % (AUTO) 3.3 % (1.0-6.0); HEMATOCRIT 36.4 % (41-53); HEMOGLOBIN 12.5 g/dL (13.5-17.5); LYMPHOCYTES # (AUTO) 1.4 K/uL (1.0-4.8); LYMPHOCYTES % (AUTO) 26.4 % (22.0-44.0); MEAN CORPUSCULAR HEMOGLOBIN 31.3 pg (26.0-34.0); MEAN CORPUSCULAR HGB CONC 34.3 G/dL (31.0-37.0); MEAN CORPUSCULAR VOLUME 91 fL (80-100); MONOCYTES # (AUTO) 0.5 K/uL (0.1-1.0); MONOCYTES % (AUTO) 9.5 % (2.0-9.0); NEUTROPHILS # (AUTO) 3.2 K/uL (1.8-7.7); NEUTROPHILS % (AUTO) 60.1 % (40.0-70.0); PLATELET COUNT (AUTO) 176 K/uL (150-450); RED BLOOD CELL COUNT(AUTO) 3.99 MIL/uL (4.50-5.90); RED CELL DISTRIBUTION WIDTH 13.6 % (11.5-14.5)
== END | disposition home or self-care (01) ==
LOC: LABMN 10:19
PROVIDERS: ATTEND Hospitalist
DX: I10 Essential (primary) hypertension (principal)
CPT/HCPCS: 80053; 80061; 85025